=== PATIENT | female | born 1960 | race Two or more races ===

== ENCOUNTER 2018-08-17 19:34 | Emergency (ER) | payer OTHER, SELFPAY ==
[~2018-08-17] VITALS: Ht 165.1 cm; Wt 72.1 kg
[2018-08-17 19:38] VITALS: BP 132/85
[2018-08-17] MEDS ORDERED: FAMOTIDINE 20 MG TABLET ONE (20:04)
[2018-08-17] MEDS ORDERED: MAALOX/HYOSCYAMINE/LIDOCAINE 45 ML BTL ONE (20:05)
[2018-08-17 20:10] LABS: MEAN CORPUSCULAR HEMOGLOBIN 30.3 pg (27.0-34.8); MEAN CORPUSCULAR VOLUME 89.3 fL (80-100); MEAN PLATELET VOLUME 9.1 fL (7.4-10.4); PLATELET COUNT 462 x10^3/uL (130-400); RED BLOOD COUNT 4.79 x10^6/uL (3.82-5.3); RED CELL DISTRIBUTION WIDTH 13.2 % (9.6-15.2)
[2018-08-17 20:21] LABS: ALANINE AMINOTRANSFERASE 37 U/L (12-78); ALBUMIN 3.5 g/dL (3.4-5.0); ANION GAP 9 mmol/L (5-15); CALCIUM 9.1 mg/dL (8.5-10.1); CHLORIDE 109 mmol/L (98-107); CREATININE 0.89 mg/dL (0.55-1.02)
[2018-08-17 20:23] LABS: ALKALINE PHOSPHATASE 136 U/L (45-117); BILIRUBIN,TOTAL 0.4 mg/dL (0.2-1.0)
[2018-08-17] MEDS ORDERED: FAMOTIDINE 20 MG TABLET PO ONE (20:30)
[2018-08-17] MEDS ORDERED: MAALOX/HYOSCYAMINE/LIDOCAINE 45 ML BTL PO ONE (20:30)
[2018-08-17 20:38] LABS: MICROSCOPIC AUTO
[2018-08-17 20:39] LABS: CULTURE INDICATED? NO
[2018-08-17 20:42] LABS: MD YES
[2018-08-17 20:49] LABS: BANDS%(MANUAL) 3 % (0-7); EOS% (MANUAL) 1 % (1-7); MONOS% (MANUAL) 4 % (2-9); REACTIVE LYMPHS % (MANUAL) 2 % (0-0); SEG#(MANUAL) 12.86 x10^3/uL (1.8-6.8); SEGS% (MANUAL) 64 % (42-75)
[2018-08-17 20:50] LABS: <PLATELET ESTIMATE> INCREASED; <PLT MORPHOLOGY> NORMAL PLT MORPH; <RBC MORPHOLOGY> NORMAL; LYMPH#(MANUAL) 5.23 x10^3/uL (1-3.4); LYMPHS% (MANUAL) 26 % (22-44); PMNS WITH VACUOLES 1+
[2018-08-17] MEDS ORDERED: ONDANSETRON 2MG/ML, 2ML ONE (20:52)
[2018-08-17] MEDS ORDERED: MORPHINE SULFATE 4 MG/ML, 1ML ONE (20:53)
[2018-08-17] MEDS ORDERED: MORPHINE SULFATE 4 MG/ML, 1ML IVPush PRN (21:00)
[2018-08-17] MEDS ORDERED: SODIUM CHLORIDE FLUSH 10ML SYR IVF ONE (21:00)
[2018-08-17] MEDS ORDERED: ONDANSETRON 2MG/ML, 2ML IVPush ONE (21:00)
[2018-08-17] MEDS ORDERED: OMNIPAQUE 350 MG/ML, 100ML BOTTLE ONE (21:51)
--- NOTE | 2018-08-17 22:55 | NUR ---
PT REPORTS IMPROVEMENT IN PAIN. DC EDUCATION PROVIDED, PT DEMONSTRATES UNDERSTANDING. PT AMBULATED STEADILY TO DC WITH RN AND SO. SO TO TRANSPORT PT HOME.
== END 2018-08-17 22:58 | disposition home or self-care (01) ==
LOC: ED 22:15
DX: R10.84 Generalized abdominal pain (principal)
CPT/HCPCS: 36415; 74177; 76700; 80053; 81001; 83690; 85025; 96374; 96375; 99284; J2405; Q9967